=== PATIENT | female | born 1985 | race Caucasian/White ===

== ENCOUNTER 2018-03-26 01:46 | Inpatient (IN) | payer OTHER ==
[~2018-03-26] VITALS: Ht 165.1 cm; Wt 59.4 kg
[2018-03-26 02:52] VITALS: BP 113/68
[2018-03-26 03:23] LABS: ABSOLUTE BASOPHIL COUNT 0 /CUMM (0.0-0.2); ABSOLUTE EOSINOPHIL COUNT 0.1 /CUMM (0.0-0.7); ABSOLUTE LYMPH COUNT 2.3 /CUMM (1.2-3.4); ABSOLUTE MONOCYTE COUNT 0.7 /CUMM (0.10-0.60); BASOPHIL % 0.2 % (0.0-2.0); EOSINOPHIL % 1.3 % (0-5); GRANULOCYTE % 68.7 % (42.2-75.2); HEMATOCRIT 33.4 % (37-47); MEAN CORPUSCULAR HGB CONC 33.3 G/DL (33.0-37.0); MEAN CORPUSCULAR VOLUME 92.8 FL (81.0-99.0); MEAN PLATELET VOLUME 8.7 FL (7.4-10.4); PLATELET COUNT 252 /CUMM (130-400); RBC DISTRIBUTION WIDTH 12.7 % (11.5-14.5); WHITE BLOOD CELL COUNT 10.1 /CUMM (4.8-10.8)
--- NOTE | 2018-03-26 07:18 | History & Physical ---
General Information and HPI MD Statement: I have seen and personally examined JENSEN VALADEZ and documented this H&P. The patient is a 32 year old female at 36 weeks and 4 days gestation who presented with a chief complaint of srom. Source of Information: patient, old records Exam Limitations: no limitations History of Present Illness: pt well known to our group c/o srom clear fluid no contractions. 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 EENTM: Denies: blurred vision, double vision, visual changes. Cardiovascular: Denies: chest pain, orthopena. Respiratory: Denies: cough, short of breath. GI: Denies: abdominal pain, nausea, vomiting. Neurological/Psychological: Denies: anxiety, depressed. Exam & Diagnostic Data Last 24 Hrs of Vital Signs/I&O vss Vital Signs Date Time Temp Pulse Resp B/P B/P Pulse O2 O2 Flow FiO2 Mean Ox Delivery Rate 03/26 0252 113/68 Intake & Output 03/26 0800 03/26 0000 03/25 1600 Intake Total Output Total Balance Patient 131 lb Weight Obstetric Exam Wgt Gained During : 17lbs Pelvimetry: seems adequate Dilation (cm): 0 Effacement (%): 60 Station: -2 Membranes: SROM Fluid: clear Fundal Height (cm): 34 Multiple Gestation? No Contractions: occasional Infant #1 - FHR Baseline: 130 Category: 1 Estimated Weight: 3400g Presentation: vtx Patient for Induction? No Physical Exam General Appearance Alert, Oriented X3, Cooperative, No Acute Distress Cardiovascular Regular Rate Lungs Clear to Auscultation Abdomen Soft Neurological Normal Gait, Normal Speech, Strength at 5/5 X4 Ext, Normal Tone Extremities No Edema Labs Blood Type & Rh: A pos Antibody Screen: neg Hct/Hgb & Platelets #1: 41.5/13.3/267 Hct/Hgb & Platelets #2: 37.5/11.5/267 Rubella: imm VDRL #1: nr VDRL #2: nr HbsAg: neg HIV #1: nr HIV #2 nr 1 Hr P Group B Strep: neg Initial Ultrasound: 09/08/17 Anatomy Ultrasound: 11/24/17 normal Genetic Testing: declined Last 24 Hrs of Labs/Bro: Laboratory Tests 03/26/18 0300: CBC w Diff NO MAN DIFF REQ, RBC 3.60 L, MCV 92.8, MCH 31.0, MCHC 33.3, RDW 12.7 , MPV 8.7, Gran % 68.7, Lymphocytes % 22.7, Monocytes % 7.1, Eosinophils % 1.3, Basophils % 0.2, Absolute Granulocytes 7.0 H, Absolute Lymphocytes 2.3, Absolute Monocytes 0.7 H, Absolute Eosinophils 0.1, Absolute Basophils 0 03/26/18 0205: Membrane Rupture POSITIVE, Urinalysis HEAVY H, Urine Color YEL, Urine Clarity HAZY H, Urine pH 6.0, Ur Specific Winston >= 1.030, Urine Protein NEG, Urine Ketones NEG, Urine Nitrite NEG, Urine Bilirubin NEG, Urine Urobilinogen 0.2, Ur Leukocyte Esterase NEG, Ur Microscopic SEDIMENT EXAMINED, Urine RBC 25- 50 H, Urine WBC 1-3 H, Ur Epithelial Cells PACKD H, Urine Bacteria MOD H, Urine Mucus MOD H, Urine Hemoglobin MOD H, Urine Glucose NEG Assessment/Plan Assessment/Plan: srom at near term plan expectant management As Ranked By This Provider Problem List: 1. Core Measures Venous Thromboembolism VTE Risk Factors / No Mechanical VTE Prophylaxis d/t LowRisk-No Interven Req'd No VTE Pharm Prophylaxis d/t LowRisk-No Interven Req'd Attending MD Review Statement Attending Statement Attending MD Statement: examined this patient, discussed with family, discussed w/nursing
--- NOTE | 2018-03-26 08:07 | PN- OBGYN ---
Surgical Brief Attending Note Brief Attending Note: Resume care from 7:30AM 32-year-old G1 para 0 at 36+ weeks intrauterine , spontaneous rupture of membrane since 11 PM yesterday, GBS negative, care uncomplicated. Today Pt is resting in bed, c/o ctx pain, reports GFM on TOCO: ctxs irregular, FHR baseline 140, moderate variability, + acels, no decels cervix 0cm/60%/-1 Patient desires no intervention now, will let pt ambulate, monitor closely
--- NOTE | 2018-03-26 13:03 | PN- OBGYN ---
Surgical Brief Attending Note Brief Attending Note: late entry for 12: 30PM pt has no complaints, SROM since 11PM yesterday. on TOCO: ctxs: irritability, FHR cat I cervix closed d/w pt risks of prolong rupture of membrane without labor, she understand, also discussed the methods of induction of labor, advised cervical ripening with misoprostol, risks benefits and alternatives of misoprostol discussed with patient in detail, she understand, all questions answered, informed consent obtained. First dose of misoprostol 25mcg placed into the vagina. Will monitor closely.
--- NOTE | 2018-03-26 21:20 | Labor & Delivery Summary ---
Delivery Summary Vaginal Delivery: Vaginal: vertex Episiotomy/Lacerations: Episiotomy/Lacerations: 2ND DEGREE Type: 2ND DEGREE Repair: 3-0 VICRYL Anesthesia: EPIDURAL Placenta: Placenta: spontanteous, normal, 3 vessel Anesthesia: EPIDURAL Baby's Weight: 2650G Apgars - 1 Min: 9 Apgars - 5 Min: 9 Additional Comments: Patient fully dilated and pushed well, spontaneously delivered live female infant at cephalic presentation, LOIS position, head delivered atraumatically, followed by shoulder and rest of the body without difficulties, baby vigorous and cried, place on mother's chest, cord clamped and cut. Placenta delivered spontaneously, intact, three-vessel cord. Second-degree laceration repaired with 3-0 Vicryl with standard technique. EBL 300 mL. Patient tolerated the procedure well, laps and instruments counts were correct, patient is in recovery room in stable condition.
[2018-03-27 08:42] LABS: ABSOLUTE BASOPHIL COUNT 0 /CUMM (0.0-0.2); ABSOLUTE EOSINOPHIL COUNT 0.1 /CUMM (0.0-0.7); ABSOLUTE LYMPH COUNT 2.5 /CUMM (1.2-3.4); ABSOLUTE MONOCYTE COUNT 0.7 /CUMM (0.10-0.60); BASOPHIL % 0.3 % (0.0-2.0); EOSINOPHIL % 0.6 % (0-5); HEMATOCRIT 30.2 % (37-47); MEAN CORPUSCULAR HGB 30.8 PG (27.0-31.0); MEAN CORPUSCULAR HGB CONC 33.1 G/DL (33.0-37.0); MEAN CORPUSCULAR VOLUME 93.1 FL (81.0-99.0); MEAN PLATELET VOLUME 8.8 FL (7.4-10.4); PLATELET COUNT 210 /CUMM (130-400); RED BLOOD CELL CT 3.25 /CUMM (4.20-5.40); WHITE BLOOD CELL COUNT 12.4 /CUMM (4.8-10.8)
--- NOTE | 2018-03-27 10:14 | PN- Post Delivery/GYN ---
Subjective Subjective: doing well, c/o some perineal discomfort, tolerate diet, void without difficulties, ambulating well Review of Systems Constitutional: Reports: no symptoms. Cardiovascular: Reports: no symptoms. Respiratory: Reports: no symptoms. Gastrointestinal: Reports: no symptoms. Genitourinary: Reports: see HPI. Hematologic/Endocrine: Reports: no symptoms. Immunologic/Allergic: Reports: no symptoms. All Other Systems: Reviewed and Negative Objective Last 24 Hrs of Vital Signs/I&O VSS Physical Exam: VSS General NAD CV RRR Lungs CTA B/L Abdomen: soft, nontender, uterus firm, fundus below umbilicus. lochia mild ext: DCT (-) Current Medications: Current Medications Sig/Agapito Start time Last Medication Dose Route Stop Time Status Admin Acetaminophen 650 MG Q4P PRN 03/26 2115 AC PO Acetaminophen 1,000 MG ONCE ONE 03/26 2115 DC 03/26 N/A 1 UNIT IV 03/26 2129 2100 Butorphanol Tartrate 1 MG Q4P PRN 03/26 0300 DC IV Butorphanol Tartrate 1 MG Q4P PRN 03/26 0300 DC IM Chloroprocaine HCl 30 ML .STK-MED ONE 03/26 1929 DC IV 03/26 1930 Docusate Sodium 100 MG BID PRN 03/26 2115 AC PO Fentanyl Citrate 100 MCG .STK-MED ONE 03/26 1454 DC IM 03/26 1455 Ibuprofen 800 MG Q6P PRN 03/26 2115 AC 03/27 PO 0745 Lactated Ringer's 1,000 ML Q8H 03/26 0300 DC 03/26 IV 1900 Misoprostol 25 MCG Q4 03/26 1400 DC 03/26 VAG 1218 Oxycodone/ 1 TAB Q3P PRN 03/26 2115 AC Acetaminophen PO Oxytocin 20 UNITS Q5H 03/26 211 DC 03/26 Lactated Ringer's 1,000 ML IV 03/27 0214 2045 Last 24 Hrs of Labs/Bro: Laboratory Tests 03/27/18 0743: CBC w Diff NO MAN DIFF REQ, RBC 3.25 L, MCV 93.1, MCH 30.8, MCHC 33.1, RDW 13.0 , MPV 8.8, Gran % 73.0, Lymphocytes % 20.1 L, Monocytes % 6.0, Eosinophils % 0.6, Basophils % 0.3, Absolute Granulocytes 9.0 H, Absolute Lymphocytes 2.5, Absolute Monocytes 0.7 H, Absolute Eosinophils 0.1, Absolute Basophils 0 Microbiology 05/04 1545 URINE ROUT: Urine Culture - RES Assessment/Plan Assessment/Plan 32 yo, s/p , PPD#1 1. encourage ambulation 2. RT PP care
[2018-03-28] MEDS ORDERED: IBUPROFEN800 M1 PO (08:18)
--- NOTE | 2018-03-28 09:18 | PN- OBGYN ---
See Addendum Surgical Brief Attending Note Brief Attending Note: PPD#2 pt is ambulating, no complaints, tolerate diet, void without difficulties PE: VSS CV RRR Lungs CTA B/L Abdomen: soft, nontender, uterus firm, fundus below umbilicus. lochia mild Ext: DCT (-) A/P: 33yo, s/p , PPD#2 1. encourage ambualtion . 2. will d/c home, f/u in office in 2wks and 6 wks, discharge instructions given. 3.RT PP care
== END 2018-03-28 12:00 | DRG 774 ==
LOC: CBCO 01:46 → GNO 02:42
PROVIDERS: Obstetrics & Gynecology
PROC: 0KQM0ZZ Repair Perineum Muscle, Open Approach (ICD-10-PCS; principal; 2018-03-26)
PROC: 10E0XZZ Delivery of Products of Conception, External Approach (ICD-10-PCS; 2018-03-26)
DX: O70.1 Second degree perineal laceration during delivery (principal); O86.4 Pyrexia of unknown origin following delivery; Z37.0 Single live birth; Z3A.36 36 weeks gestation of pregnancy
CPT/HCPCS: GNOP; GNOS; 81001; 84112; 87086; 88307; J0131; J7120